=== PATIENT | male | born 1975 | race Caucasian/White ===

== ENCOUNTER 2023-04-15 14:22 | Outpatient (CLI) | payer OTHER, SELFPAY ==
[2023-04-18 03:57] LABS: Thyroid Peroxidase Antibodies <1 IU/mL (<9)
== END 2023-04-15 14:23 | disposition home or self-care (01) ==
LOC: ANHWCLAB 14:24
PROVIDERS: PCP Internal Medicine; Visit Provider Internal Medicine
DX: E03.9 Hypothyroidism, unspecified (principal)
CPT/HCPCS: 36415; 84439; 84443; 86376

== ENCOUNTER 2023-08-17 14:58 | Outpatient (CLI) | payer OTHER, SELFPAY ==
--- NOTE | ~2023-08-17 | XR_ITS ---
[id number] DATE: 08/17/2023 15:19 INDICATION: Calcaneal pain. Plantar fasciitis. TECHNIQUE: Weightbearing AP, oblique and lateral views COMPARISON: None FINDINGS: Very slight plantar calcaneal enthesopathy, without erosive change or periostitis. No fracture or dislocation, periosteal reaction or bone destruction. Mild osteoarthritis at the first metatarsophalangeal joint. IMPRESSION: Slight plantar calcaneal enthesopathy Reviewed, dictated and finalized at [facility]. Reviewed, dictated and finalized at [facility]. [employer]
== END 2023-08-17 14:59 | disposition home or self-care (01) ==
LOC: ANHIMG 14:59
PROVIDERS: Visit Provider Podiatrist Foot & Ankle Surgery
DX: M72.2 Plantar fascial fibromatosis (principal)
CPT/HCPCS: 73630

== ENCOUNTER 2023-09-17 12:44 | Outpatient (CLI) | payer OTHER, SELFPAY | END 2023-09-17 12:45 | disposition home or self-care (01) | LOC: ANHWCLAB 12:48 | PROVIDERS: Visit Provider Internal Medicine | DX: E03.9 Hypothyroidism, unspecified (principal) | CPT/HCPCS: 36415; 84439; 84443 ==

== ENCOUNTER 2024-03-22 15:27 | Outpatient (CLI) | payer OTHER, SELFPAY ==
[2024-03-22 16:32] LABS: Thyroid Stimulating Hormone 0.782 uIU/mL (0.465-4.680)
== END 2024-03-22 15:28 | disposition home or self-care (01) ==
LOC: ANHLAB 15:29
PROVIDERS: Visit Provider Internal Medicine
DX: E03.9 Hypothyroidism, unspecified (principal)
CPT/HCPCS: 36415; 84439; 84443